=== PATIENT | male | born 1985 | race Caucasian/White ===

== ENCOUNTER 2020-11-12 12:18 | Emergency (ER) | payer OTHER ==
--- NOTE | 2020-11-12 13:14 | XRay Report ---
CHEST 2 VIEWS INDICATION / CLINICAL INFORMATION: CP. Chest pain FINDINGS: SUPPORT DEVICES: None. HEART / MEDIASTINUM: No significant abnormality. LUNGS / PLEURA: There is some ill-defined airspace density within the left lower lung probably relate d to atelectasis. No significant pleural effusion or pneumothorax. Signer Name: Randy Wilder MD Signed: 11/12/2020 1:09 PM Workstation Name: [id number]
--- NOTE | 2020-11-12 13:18 | Emergency Department Report ---
ED Chest Pain HPI - General Chief Complaint: Chest Pain Stated Complaint: CHEST PAINS Time Seen by Provider: 11/12/20 12:37 Source: patient Mode of arrival: Ambulatory Limitations: No Limitations - History of Present Illness Initial Comments: pt is a 35 yo male who presents to the ED with c/o left sided chest pain that began 3 days ago. he states it feels like a pressure. he states at first he thought it was gas. he states that it feels underneath his left rib cage. he states that the pain radiates to his shoulder. he states he has pleuritic CP and has significant pain with taking a deep breath. he denies any N/V/D, fever, cough, SOB, chills, leg swelling. no pmhx. no allergies to meds. pt is a non smoker. he denies any family history of cardiac issues. he states he went to his PCP 3 days ago and had a CXR and lab work but he states his symptoms having been worsening. - Related Data Previous Rx's Medication Instructions Recorded Last Taken Type Azithromycin [Zithromax Z-CECELIA] 250 mg PO DAILY 5 Days #6 tablet 11/12/20 Unknown Rx Prednisone [predniSONE 10 mg 10 mg PO .TAPER #1 tab.ds.pk 11/12/20 Unknown Rx (6-Day Pack, 21 Tabs)] traMADoL [Ultram 50 MG tab] 50 mg PO Q6HR PRN #12 tablet 11/12/20 Unknown Rx Allergies Allergy/AdvReac Type Severity Reaction Status Date / Time No Known Allergies Allergy Verified 11/12/20 12:23 Heart Score - HEART Score History: Slightly suspicious EKG: Normal Age: < 45 Risk factors: 1-2 risk factors Troponin: < normal limit HEART Score: 1 ED Review of Systems ROS: Stated complaint: CHEST PAINS Other details as noted in HPI Comment: All other systems reviewed and negative ED Past Medical Hx - Past Medical History Previous Medical History?: No - Surgical History Past Surgical History?: No - Social History Smoking Status: Never Smoker Substance Use Type: Alcohol - Medications Home Medications: Home Medications Medication Instructions Recorded Confirmed Last Taken Type Azithromycin [Zithromax Z-CECELIA] 250 mg PO DAILY 5 Days #6 tablet 11/12/20 Unknown Rx Prednisone [predniSONE 10 mg 10 mg PO .TAPER #1 tab.ds.pk 11/12/20 Unknown Rx (6-Day Pack, 21 Tabs)] traMADoL [Ultram 50 MG tab] 50 mg PO Q6HR PRN #12 tablet 11/12/20 Unknown Rx ED Physical Exam - General Limitations: No Limitations General appearance: alert, in no apparent distress - Head Head exam: Present: atraumatic, normocephalic - Eye Eye exam: Present: normal appearance - ENT ENT exam: Present: mucous membranes moist - Respiratory Respiratory exam: Present: normal lung sounds bilaterally, chest wall tenderness (left anterior and left lateral reproducible ttp, no crepitus, no deformity, pain with inspiration ). Absent: respiratory distress, wheezes, rales, rhonchi, stridor, accessory muscle use, decreased breath sounds, prolonged expiratory - Cardiovascular Cardiovascular Exam: Present: regular rate, normal rhythm, normal heart sounds. Absent: systolic murmur, diastolic murmur, rubs, gallop - Neurological Exam Neurological exam: Present: alert, oriented X3 - Psychiatric Psychiatric exam: Present: normal affect, normal mood - Skin Skin exam: Present: warm, dry, intact ED Course Vital Signs 11/12/20 11/12/20 11/12/20 12:24 14:30 14:47 Temperature 98.0 F Pulse Rate 85 66 Respiratory 20 20 20 Rate Blood Pressure 148/86 Blood Pressure 132/86 [Left] O2 Sat by Pulse 100 100 100 Oximetry 11/12/20 11/12/20 14:50 16:26 Temperature Pulse Rate 66 80 Respiratory 14 Rate Blood Pressure Blood Pressure 132/78 [Left] O2 Sat by Pulse 99 Oximetry ALEXEI score - Alexei Score Age > 65: (0) No Aspirin use within the Past 7 Days: (0) No 3 or more CAD Risk Factors: (0) No 2 or more Angina events in past 24 hrs: (0) No Known CAD with more than 50% Stenosis: (0) No Elevated Cardiac Markers: (0) No ST Deviation Greater than 0.5mm: (0) No ALEXEI Score: 0 ED Medical Decision Making - Lab Data Result diagrams: 11/12/20 13:14 11/12/20 13:14 Lab Results 11/12/20 11/12/20 11/12/20 Range/Units 13:13 13:14 13:14 WBC 9.0 (4.5-11.0) K/mm3 RBC 5.03 (3.65-5.03) M/mm3 Hgb 14.7 (11.8-15.2) gm/dl Hct 42.6 (35.5-45.6) % MCV 85 (84-94) fl MCH 29 (28-32) pg MCHC 34 (32-34) % RDW 14.4 (13.2-15.2) % Plt Count 183 (140-440) K/mm3 Lymph % (Auto) 13.2 L (13.4-35.0) % [place] % (Auto) 10.5 H (0.0-7.3) % Eos % (Auto) 1.1 (0.0-4.3) % Baso % (Auto) 0.5 (0.0-1.8) % Lymph # (Auto) 1.2 (1.2-5.4) K/mm3 [place] # (Auto) 0.9 H (0.0-0.8) K/mm3 Eos # (Auto) 0.1 (0.0-0.4) K/mm3 Baso # (Auto) 0.0 (0.0-0.1) K/mm3 Seg Neutrophils % 74.7 H (40.0-70.0) % Seg Neutrophils # 6.7 (1.8-7.7) K/mm3 D-Dimer 435.31 H (0-234) ng/mlDDU Sodium 141 (137-145) mmol/L Potassium 4.2 (3.6-5.0) mmol/L Chloride 103.4 (98-107) mmol/L Carbon Dioxide 28 (22-30) mmol/L Anion Gap 14 mmol/L BUN 13 (9-20) mg/dL Creatinine 1.1 (0.8-1.3) mg/dL Estimated GFR > 60 ml/min BUN/Creatinine Ratio 12 % Glucose 95 (75-100) mg/dL Calcium 9.2 (8.4-10.2) mg/dL Total Bilirubin 0.90 (0.1-1.2) mg/dL AST 20 (5-40) units/L ALT 25 (7-56) units/L Alkaline Phosphatase 56 (35-129) units/L Troponin T < 0.010 (0.00-0.029) ng/mL Total Protein 6.7 (6.3-8.2) g/dL Albumin 4.3 (3.9-5) g/dL Albumin/Globulin Ratio 1.8 % Vital Signs 11/12/20 11/12/20 11/12/20 12:24 14:30 14:47 Temperature 98.0 F Pulse Rate 85 66 Respiratory 20 20 20 Rate Blood Pressure 148/86 Blood Pressure 132/86 [Left] O2 Sat by Pulse 100 100 100 Oximetry 11/12/20 11/12/20 14:50 16:26 Temperature Pulse Rate 66 80 Respiratory 14 Rate Blood Pressure Blood Pressure 132/78 [Left] O2 Sat by Pulse 99 Oximetry - EKG Data EKG shows normal: sinus rhythm, axis, intervals Rate: normal - EKG Data 11/12/20 13:18 ST elevation from normal early repolarization no STEMI - Radiology Data Radiology results: report reviewed Ordering Physician: TERRY SHIN Date of Service: 11/12/20 Procedure(s): XR chest routine 2V Accession Number(s): [id number] cc: TERRY SHIN Fluoro Time In Minutes: CHEST 2 VIEWS INDICATION / CLINICAL INFORMATION: CP. Chest pain FINDINGS: SUPPORT DEVICES: None. HEART / MEDIASTINUM: No significant abnormality. LUNGS / PLEURA: There is some ill-defined airspace density within the left lower lung probably related to atelectasis. No significant pleural effusion or pneumothorax. Signer Name: Randy Wilder MD Signed: 11/12/2020 1:09 PM Workstation Name: [id number] Transcribed By: BC Dictated By: Randy Wilder MD Electronically Authenticated By: Randy Wilder MD Signed Date/Time: 11/12/20 130 DD/ 1309 TD/TT: Ordering Physician: TERRY SHIN Date of Service: 11/12/20 Procedure(s): CT angio chest Accession Number(s): [id number] cc: TERRY SHIN CTA CHEST WITH IV CONTRAST INDICATION / CLINICAL INFORMATION: Elevated d-dimer, pleuritic chest pain. TECHNIQUE: Axial CT images were obtained through the chest after injection of 100 mL IV contrast. 3 plane MIP and/or 3D reconstructions were produced. All CT scans at this location are performed using CT dose reduction for [facility] by means of automated exposure control. COMPARISON: Chest radiograph performed today FINDINGS: PULMONARY ARTERIES: No pulmonary emboli. THORACIC AORTA: No significant abnormality. HEART: No significant abnormality. CORONARY ARTERIES: No significant calcification. PLEURA: Trace left pleural effusion. No pneumothorax. LYMPH NODES: No significant adenopathy. LUNGS: There is prominent interstitial disease in both lower lobes especially the left. The finding is nonspecific ADDITIONAL FINDINGS: None. UPPER ABDOMEN: No acute findings. SKELETAL STRUCTURES: No significant osseous abnormality. IMPRESSION: 1. No CT evidence for pulmonary embolism. 2. Mild interstitial prominence throughout both lower lobes especially on the left. This is nonspecific and could be related to infection or pulmonary edema. Signer Name: Nahomy Short MD Signed: 11/12/2020 3:38 PM Workstation Name: [id number] Transcribed By: JR Dictated By: Nahomy Short MD Electronically Authenticated By: Nahomy Short MD Signed Date/Time: 11/12/201537 DD/ 33 TD/TT: - Medical Decision Making pt is a 35 yo male who presents to the ED with c/o left sided chest pain that began 3 days ago. he states it feels like a pressure. he states at first he thought it was gas. he states that it feels underneath his left rib cage. he states that the pain radiates to his shoulder. he states he has pleuritic CP and has significant pain with taking a deep breath. he denies any N/V/D, fever, cough, SOB, chills, leg swelling. no pmhx. no allergies to meds. pt is a non smoker. he denies any family history of cardiac issues. he states he went to his PCP 3 days ago and had a CXR and lab work but he states his symptoms having been worsening. Vitals are stable. On exam:left anterior and left lateral reproducible ttp, no crepitus, no deformity, pain with inspiration. Labs with elevated D-dimer, otherwise normal. Troponin is negative. EKG ST elevation from normal early repolarization, no STEMI. CXR: LUNGS / PLEURA: There is some ill- defined airspace density within the left lower lung probably related to atelec tasis. No significant pleural effusion or pneumothorax. CT angio chest: 1. No CT evidence for pulmonary embolism. 2. Mild interstitial prominence throughout both lower lobes especially on the left. This is nonspecific and could be related to infection or pulmonary edema. Heart score is 1, ALEXEI score 0, low risk for cardiac event. Symptoms could be related to pneumonia, likely viral in origin, could be related to COVID-19, discussed COVID-19 with patient, discussed return precautions, discussed outpatient testing, discussed self quarantine, patient does not meet hospital criteria for COVID-19 admission or for COVID-19 hospital testing. Patient is also exhibiting signs symptoms of pleurisy. Patient given prescription for tramadol, prednisone, azithromycin. Advised patient please take medication as prescribed. do not drive or operate heavy machinery while taking medication. please self quarantine for 10 days from the onset of your symptoms. recommend for you to get outpatient COVID 19 testing. return to the emergency room immediately for any new or worsening symptoms. Critical care attestation.: If time is entered above; I have spent that time in minutes in the direct care of this critically ill patient, excluding procedure time. ED Disposition Clinical Impression: Pleuritic chest pain, Suspected COVID-19 virus infection Pneumonia Qualifiers: Pneumonia type: due to unspecified organism Laterality: bilateral Lung lo cation: lower lobe of lung Qualified Code(s): J18.9 - Pneumonia, unspecified organism Disposition: DC-01 TO HOME OR SELFCARE Is pt being admited?: No Does the pt Need Aspirin: No Condition: Stable Instructions: COVID-19, Pleurisy, COVID-19: How to Protect Yourself and Others - CDC, Chest Pain (ED), Bacterial Pneumonia (ED) Additional Instructions: please take medication as prescribed. do not drive or operate heavy machinery while taking medication. please self quarantine for 10 days from the onset of your symptoms. recommend for you to get outpatient COVID 19 testing. return to the emergency room immediately for any new or worsening symptoms. Prescriptions: Prednisone [predniSONE 10 mg (6-Day Pack, 21 Tabs)] 10 mg PO .TAPER #1 tab.ds.pk traMADoL [Ultram 50 MG tab] 50 mg PO Q6HR PRN #12 tablet PRN Reason: Pain Azithromycin [Zithromax Z-CECELIA] 250 mg PO DAILY 5 Days #6 tablet Referrals: TIFFANIE RASCON MD [Primary Care Provider] - 2-3 Days Time of Disposition: 15:49 Print Language: LITHUANIAN
[2020-11-12 13:48] LABS: Basophils % (Auto) 0.5 % (0.0-1.8); Eosinophils % (Auto) 1.1 % (0.0-4.3); Hematocrit 42.6 % (35.5-45.6); Hemoglobin 14.7 gm/dl (11.8-15.2); Lymphocytes % (Auto) 13.2 % (13.4-35.0); Mean Corpuscular HGB Conc 34 % (32-34); Mean Corpuscular Volume 85 fl (84-94); Monocytes % (Auto) 10.5 % (0.0-7.3); Platelet Count 183 K/mm3 (140-440); Red Blood Count 5.03 M/mm3 (3.65-5.03); Red Cell Distribution Width 14.4 % (13.2-15.2)
[2020-11-12 13:49] LABS: Eosinophils # (Auto) 0.1 K/mm3 (0.0-0.4); Lymphocytes # (Auto) 1.2 K/mm3 (1.2-5.4); Monocytes # (Auto) 0.9 K/mm3 (0.0-0.8)
[2020-11-12 14:00] LABS: Alanine Aminotransferase 25 units/L (7-56); Albumin 4.3 g/dL (3.9-5); BUN/Creatinine Ratio 12; Blood Urea Nitrogen 13 mg/dL (9-20); Calcium 9.2 mg/dL (8.4-10.2); Hemolysis Index 8
[2020-11-12] MEDS ORDERED: ONDANSETRON 4 MG/2 ML INJ IV ONE (15:01)
[2020-11-12] MEDS ORDERED: MORPHINE 4 MG/1 ML INJ IV ONE (15:01)
[2020-11-12] MEDS ORDERED: MORPHINE 4 MG/1 ML INJ ONE (15:01)
--- NOTE | 2020-11-12 15:42 | Cat Scan Report ---
CTA CHEST WITH IV CONTRAST INDICATION / CLINICAL INFORMATION: Elevated d-dimer, pleuritic chest pain. TECHNIQUE: Axial CT images were obtained through the chest after injection of 100 mL IV contrast. 3 plane MIP an d/or 3D reconstructions were produced. All CT scans at this location are performed using CT dose redu ction for [facility] by means of automated exposure control. COMPARISON: Chest radiograph performed today FINDINGS: PULMONARY ARTERIES: No pulmonary emboli. THORACIC AORTA: No significant abnormality. HEART: No significant abnormality. CORONARY ARTERIES: No significant calcification. PLEURA: Trace left pleural effusion. No pneumothorax. LYMPH NODES: No significant adenopathy. LUNGS: There is prominent interstitial disease in both lower lobes especially the left. The finding i s nonspecific ADDITIONAL FINDINGS: None. UPPER ABDOMEN: No acute findings. SKELETAL STRUCTURES: No significant osseous abnormality. IMPRESSION: 1. No CT evidence for pulmonary embolism. 2. Mild interstitial prominence throughout both lower lobes especially on the left. This is nonspecif ic and could be related to infection or pulmonary edema. Signer Name: Nahomy Short MD Signed: 11/12/2020 3:38 PM Workstation Name: [id number]
[2020-11-12] MEDS ORDERED: KETOROLAC 60 MG/2 ML INJ IM ONE (16:00)
[2020-11-12 16:28] VITALS: BP 132/78
== END 2020-11-12 16:27 | disposition home or self-care (01) ==
LOC: ED 12:18
DX: J18.9 Pneumonia, unspecified organism (principal); Z20.822 Contact with and (suspected) exposure to COVID-19; R07.89 Other chest pain; Z79.2 Long term (current) use of antibiotics; Z79.899 Other long term (current) drug therapy
CPT/HCPCS: 36415; 71046; 71275; 80053; 84484; 85025; 85379; 93005; 96372; 96374; 96375; 99284; J1885; J2270; J2405; Q9967